=== PATIENT | female | born 1970 | race Caucasian/White ===

== ENCOUNTER 2022-11-01 08:43 | Outpatient (CLI) | payer OTHER | END 2022-11-01 08:44 | disposition home or self-care (01) | LOC: CSHMAMMO 08:43 | PROVIDERS: ATTEND Family Medicine | DX: N63.21 Unspecified lump in the left breast, upper outer quadrant (principal) | CPT/HCPCS: 77066; G0279 ==

== ENCOUNTER 2025-01-14 07:40 | Outpatient (CLI) | payer OTHER, SELFPAY ==
[2025-01-14] MEDS ORDERED: Iopamidol 300 61% 100 ML VIAL FS ONE (10:37)
== END 2025-01-14 07:41 | disposition home or self-care (01) ==
LOC: CSHCT 07:40
PROVIDERS: ATTEND Physician Assistant Medical
DX: R10.32 Left lower quadrant pain (principal); R19.4 Change in bowel habit; E55.9 Vitamin D deficiency, unspecified
CPT/HCPCS: 36415; 74177; Q9967